=== PATIENT | female | born 1980 | race African-American/Black ===

== ENCOUNTER 2019-01-28 07:36 | Inpatient (IN) | payer MEDICAID ==
[~2019-01-28] VITALS: Ht 175.3 cm; Wt 57.6 kg
[~2019-01-28 07:36] MED LIST: FLUD25I IM; LITH600C PO; MULT-29 PO
[2019-01-28 08:19] VITALS: BP 136/81
[2019-01-28] MEDS ORDERED: ZOLPIDEM TARTRATE 10 MG TABLET PO PRN (08:45)
[2019-01-28 09:00] VITALS: BP 126/86
[2019-01-28] MEDS ORDERED: MAG HYDROX/AL HYDROX/SIMETH ES 30 ML SUSPENSION UDCUP PO PRN (11:45)
[2019-01-28] MEDS ORDERED: CloNIDine HCL 0.1 MG TABLET PO PRN (11:45)
[2019-01-28] MEDS ORDERED: LOPERAMIDE HCL 2 MG CAPSULE PO PRN (11:45)
[2019-01-28] MEDS ORDERED: BACITRACIN 28.4 GM OINTMENT TP PRN (11:45)
[2019-01-28] MEDS ORDERED: MAGNESIUM HYDROXIDE SUSPENSION 30 ML UDCUP PO PRN (11:45)
[2019-01-28] MEDS ORDERED: PETROLATUM,WHITE 28 GM JELLY TP PRN (11:45)
[2019-01-28] MEDS ORDERED: ACETAMINOPHEN 325 MG TABLET PO PRN (11:45)
[2019-01-28] MEDS ORDERED: ONDANSETRON HCL 4 MG TABLET PO PRN (11:45)
[2019-01-28] MEDS ORDERED: ALBUTEROL SULFATE HFA 90 MCG/PUFF 8 GM INHALER IH PRN (11:45)
[2019-01-28] MEDS ORDERED: IBUPROFEN 600 MG TABLET PO PRN (11:45)
[2019-01-28] MEDS ORDERED: BENZOCAINE/MENTHOL LOZENGE MM PRN (11:45)
[2019-01-28 16:15] VITALS: BP 104/68
[2019-01-29 00:25] VITALS: BP 124/75
[2019-01-29 07:42] LABS: BASOPHILS % (AUTO) 0.4 % (0.0-2.0); EOSINOPHILS % (AUTO) 0.6 % (1.0-6.0); HEMATOCRIT 40.7 % (36-46); LYMPHOCYTES # (AUTO) 1.7 K/uL (1.0-4.8); LYMPHOCYTES % (AUTO) 21.4 % (22.0-44.0); MEAN CORPUSCULAR HEMOGLOBIN 27.7 pg (26.0-34.0); MEAN CORPUSCULAR HGB CONC 31.9 G/dL (31.0-37.0); MEAN CORPUSCULAR VOLUME 87 fL (80-100); MONOCYTES # (AUTO) 0.4 K/uL (0.1-1.0); MONOCYTES % (AUTO) 5.1 % (2.0-9.0); NEUTROPHILS # (AUTO) 5.8 K/uL (1.8-7.7); NEUTROPHILS % (AUTO) 72.5 % (40.0-70.0); PLATELET COUNT (AUTO) 417 K/uL (150-450); RED BLOOD CELL COUNT(AUTO) 4.69 MIL/uL (4.00-5.20); RED CELL DISTRIBUTION WIDTH 16.3 % (11.5-14.5)
[2019-01-29 07:45] LABS: AMPHET/METH SCREEN,URINE POSITIVE (NEGATIVE); BARBITURATE SCREEN, URINE NEGATIVE (NEGATIVE); BENZODIAZEPINES SCREEN,URINE NEGATIVE (NEGATIVE); CANNABINOID SCREEN,URINE POSITIVE (NEGATIVE); COCAINE SCREEN,URINE NEGATIVE (NEGATIVE); METHADONE SCREEN, URINE NEGATIVE (NEGATIVE); OPIATE SCREEN,URINE NEGATIVE (NEGATIVE)
[2019-01-29 07:47] LABS: PHENCYCLIDINE SCREEN,URINE NEGATIVE (NEGATIVE)
[2019-01-29 07:54] LABS: APPEARANCE,URINE CLEAR (CLEAR); BILIRUBIN,URINE NEGATIVE (NEGATIVE); GLUCOSE, URINE (UA) NEGATIVE (NEGATIVE); KETONES,URINE NEGATIVE (NEGATIVE); LEUKOCYTE ESTERASE ,URINE NEGATIVE (NEGATIVE); NITRATE,URINE NEGATIVE (NEGATIVE); OCCULT BLOOD,URINE NEGATIVE (NEGATIVE); PROTEIN,URINE NEGATIVE (NEGATIVE); UROBILINOGEN,URINE 0.2 mg/dL (<=1.0)
[2019-01-29 08:05] LABS: HEMOGLOBIN A1C 5.8 % (4.5-6.2)
[2019-01-29 08:15] LABS: ALANINE AMINOTRANSFERASE 17 U/L (12-78); ALBUMIN 3.3 g/dL (3.4-5.0); ALKALINE PHOSPHATASE 58 U/L (46-116); ANION GAP 10 mmol/L (8-16); ASPARTATE AMINOTRANSFERASE 13 U/L (15-37); BILIRUBIN,TOTAL 0.2 mg/dL (0.1-1.0); CALCIUM, TOTAL 8.6 mg/dL (8.8-10.5); CARBON DIOXIDE 27 mmol/L (22-29); CHLORIDE 100 mmol/L (98-107); CHOLESTEROL 145 mg/dL (131-200); CREATININE 0.63 mg/dL (0.60-1.30); FREE T4 (FREE THYROXINE) 0.88 ng/dL (0.76-1.46); GLOMERULAR FILTR. RATE CALC > 60 mL/min (>60); GLUCOSE,RANDOM 68 mg/dL (70-110); HCG,QUANTITATIVE < 1 mIU/mL (0-6); HDL CHOLESTEROL 71 mg/dL (40-60); LDL CHOL (CALC.) 59 mg/dL (0-130); POTASSIUM 4.1 mmol/L (3.5-5.1); SODIUM SERUM 137 mmol/L (136-145); THYROID STIMULATING HORMONE 1.18 uIU/mL (0.36-3.74); TOTAL PROTEIN, SERUM 7.1 g/dL (6.4-8.2); TRIGLYCERIDES 74 mg/dL (15-150); UREA NITROGEN, BLOOD 10 mg/dL (7-18)
[2019-01-29 08:21] VITALS: BP 131/60
[2019-01-29] MEDS: MULTIVITAMINS WITH MINERALS, THERAPEUTIC TABLET PO SCH (09:00)
[2019-01-29] MEDS: OMEPRAZOLE 20 MG CAPSULE PO SCH (09:00)
[2019-01-29] MEDS: DOCUSATE SODIUM 100 MG CAPSULE PO SCH (09:00)
[2019-01-29 16:45] VITALS: BP 142/90
[2019-01-29] MEDS: FluPHENAZine HCL 10 MG TABLET PO SCH (21:00)
[2019-01-29] MEDS: LITHIUM CARBONATE 300 MG CAPSULE PO SCH (21:00)
[2019-01-30 04:53] VITALS: BP 129/77
[2019-01-30] MEDS: LITHIUM CARBONATE 300 MG CAPSULE PO SCH ×2 (09:00→18:37)
[2019-01-30] MEDS: DOCUSATE SODIUM 100 MG CAPSULE PO SCH (09:00)
[2019-01-30] MEDS: OMEPRAZOLE 20 MG CAPSULE PO SCH (09:00)
[2019-01-30] MEDS: MULTIVITAMINS WITH MINERALS, THERAPEUTIC TABLET PO SCH (09:00)
[2019-01-30] MEDS ORDERED: FluPHENAZine DECANOATE 25 MG/ML IM SCH (09:00)
[2019-01-30] MEDS: FluPHENAZine HCL 10 MG TABLET PO SCH (21:00)
[2019-01-31 02:58] VITALS: BP 127/64
[2019-01-31] MEDS: LITHIUM CARBONATE 300 MG CAPSULE PO SCH ×2 (08:55→16:41)
[2019-01-31] MEDS: MULTIVITAMINS WITH MINERALS, THERAPEUTIC TABLET PO SCH (08:55)
[2019-01-31] MEDS: OMEPRAZOLE 20 MG CAPSULE PO SCH (08:55)
[2019-01-31] MEDS: LORazepam 2 MG TABLET PO PRN (08:55)
[2019-01-31] MEDS: DOCUSATE SODIUM 100 MG CAPSULE PO SCH (08:55)
[2019-01-31 16:25] VITALS: BP 111/70
[2019-01-31] MEDS: FluPHENAZine HCL 10 MG TABLET PO SCH (21:00)
[2019-02-01] VITALS: BP 118/71
[2019-02-01 08:20] VITALS: BP 120/68
[2019-02-01] MEDS: OMEPRAZOLE 20 MG CAPSULE PO SCH (09:00)
[2019-02-01] MEDS: MULTIVITAMINS WITH MINERALS, THERAPEUTIC TABLET PO SCH (09:00)
[2019-02-01] MEDS: LITHIUM CARBONATE 300 MG CAPSULE PO SCH ×2 (09:00→16:11)
[2019-02-01] MEDS: DOCUSATE SODIUM 100 MG CAPSULE PO SCH (09:01)
[2019-02-01] MEDS ORDERED: ARIPiprazole ER SUSPENSION 400 MG PRE-FILLED DUAL CHAMBER SYRINGE IM SCH (10:00)
[2019-02-01] MEDS: ARIPiprazole 15 MG TABLET PO SCH (10:06)
[2019-02-01 16:20] VITALS: BP 142/63
[2019-02-02 01:20] VITALS: BP 117/74
[2019-02-02 08:15] VITALS: BP 116/70
[2019-02-02] MEDS: ARIPiprazole 15 MG TABLET PO SCH (08:50)
[2019-02-02] MEDS: DOCUSATE SODIUM 100 MG CAPSULE PO SCH (08:50)
[2019-02-02] MEDS: LITHIUM CARBONATE 300 MG CAPSULE PO SCH ×2 (08:51→16:34)
[2019-02-02] MEDS: OMEPRAZOLE 20 MG CAPSULE PO SCH (08:51)
[2019-02-02] MEDS: MULTIVITAMINS WITH MINERALS, THERAPEUTIC TABLET PO SCH (08:52)
[2019-02-02 16:32] VITALS: BP 137/87
[2019-02-02] MEDS: LORazepam 2 MG TABLET PO PRN (16:34)
[2019-02-03] MEDS: HALOPERIDOL 5 MG TABLET PO PRN ×2 (04:18→16:34)
[2019-02-03 04:20] VITALS: BP 121/73
[2019-02-03 08:11] VITALS: BP 100/66
[2019-02-03] MEDS: DOCUSATE SODIUM 100 MG CAPSULE PO SCH (08:32)
[2019-02-03] MEDS: LITHIUM CARBONATE 300 MG CAPSULE PO SCH ×3 (08:32→16:34)
[2019-02-03] MEDS: OMEPRAZOLE 20 MG CAPSULE PO SCH ×2 (08:32→08:45)
[2019-02-03] MEDS: ARIPiprazole 15 MG TABLET PO SCH (08:32)
[2019-02-03] MEDS: MULTIVITAMINS WITH MINERALS, THERAPEUTIC TABLET PO SCH (08:32)
[2019-02-03] MEDS: LORazepam 2 MG TABLET PO PRN ×2 (08:33→16:34)
[2019-02-03 16:09] VITALS: BP 132/65
[2019-02-04 05:17] VITALS: BP 119/66
[2019-02-04 08:50] VITALS: BP 123/68
[2019-02-04] MEDS: ARIPiprazole 15 MG TABLET PO SCH (08:53)
[2019-02-04] MEDS: OMEPRAZOLE 20 MG CAPSULE PO SCH (08:53)
[2019-02-04] MEDS: LITHIUM CARBONATE 300 MG CAPSULE PO SCH ×2 (08:53→16:01)
[2019-02-04] MEDS: DOCUSATE SODIUM 100 MG CAPSULE PO SCH (08:53)
[2019-02-04] MEDS: MULTIVITAMINS WITH MINERALS, THERAPEUTIC TABLET PO SCH (08:53)
[2019-02-04 16:29] VITALS: BP 128/73
[2019-02-04] MEDS: LORazepam 2 MG TABLET PO PRN (21:35)
[2019-02-05 02:52] VITALS: BP 128/70
[2019-02-05] MEDS: DIVALPROEX SODIUM 500 MG DR TABLET PO SCH ×2 (08:03→16:38)
[2019-02-05] MEDS: ARIPiprazole 15 MG TABLET PO SCH (08:03)
[2019-02-05] MEDS: MULTIVITAMINS WITH MINERALS, THERAPEUTIC TABLET PO SCH (08:03)
[2019-02-05] MEDS: OMEPRAZOLE 20 MG CAPSULE PO SCH (08:03)
[2019-02-05] MEDS: DOCUSATE SODIUM 100 MG CAPSULE PO SCH (08:03)
[2019-02-05 08:28] VITALS: BP 119/69
[2019-02-05] MEDS: LORazepam 2 MG TABLET PO PRN ×2 (10:06→16:00)
[2019-02-05 16:00] VITALS: BP 124/73
[2019-02-06 00:28] VITALS: BP 114/65
[2019-02-06] MEDS: LORazepam 2 MG TABLET PO PRN ×2 (03:49→16:35)
[2019-02-06] MEDS: DOCUSATE SODIUM 100 MG CAPSULE PO SCH (08:22)
[2019-02-06] MEDS: OMEPRAZOLE 20 MG CAPSULE PO SCH (08:22)
[2019-02-06] MEDS: DIVALPROEX SODIUM 500 MG DR TABLET PO SCH ×2 (08:22→17:00)
[2019-02-06] MEDS: ARIPiprazole 15 MG TABLET PO SCH (08:22)
[2019-02-06] MEDS: MULTIVITAMINS WITH MINERALS, THERAPEUTIC TABLET PO SCH (08:22)
[2019-02-06 08:27] VITALS: BP 135/70
[2019-02-06 16:14] VITALS: BP 124/74
[2019-02-07 00:35] VITALS: BP 122/69
[2019-02-07 08:20] VITALS: BP 124/76
[2019-02-07] MEDS: ARIPiprazole 15 MG TABLET PO SCH (08:48)
[2019-02-07] MEDS: MULTIVITAMINS WITH MINERALS, THERAPEUTIC TABLET PO SCH (08:48)
[2019-02-07] MEDS: DOCUSATE SODIUM 100 MG CAPSULE PO SCH (08:48)
[2019-02-07] MEDS: DIVALPROEX SODIUM 500 MG DR TABLET PO SCH ×2 (08:52→17:00)
[2019-02-07] MEDS: OMEPRAZOLE 20 MG CAPSULE PO SCH (08:52)
[2019-02-07 16:05] VITALS: BP 122/79
[2019-02-08 04:09] VITALS: BP 119/73
[2019-02-08 08:08] VITALS: BP 128/74
[2019-02-08] MEDS: ARIPiprazole 15 MG TABLET PO SCH (08:44)
[2019-02-08] MEDS: DOCUSATE SODIUM 100 MG CAPSULE PO SCH (08:44)
[2019-02-08] MEDS: DIVALPROEX SODIUM 500 MG DR TABLET PO SCH (09:00)
[2019-02-08] MEDS: MULTIVITAMINS WITH MINERALS, THERAPEUTIC TABLET PO SCH (09:00)
[2019-02-08] MEDS: OMEPRAZOLE 20 MG CAPSULE PO SCH (09:00)
[2019-02-08] MEDS ORDERED: DIVA-78 PO (10:51)
[2019-02-08] MEDS ORDERED: ARIP15TA2 PO (10:51)
[2019-02-08] MEDS ORDERED: ARIP400S3 IM (10:51)
== END 2019-02-08 12:15 | disposition home or self-care (01) | DRG 750 ==
LOC: B3A 08:50
PROVIDERS: ADMIT Psychiatry & Neurology Psychiatry; ATTEND Psychiatry & Neurology Psychiatry
DX: F20.0 Paranoid schizophrenia (principal); R45.851 Suicidal ideations; G47.00 Insomnia, unspecified; K59.00 Constipation, unspecified; F19.10 Other psychoactive substance abuse, uncomplicated; Z56.0 Unemployment, unspecified; Z71.51 Drug abuse counseling and surveillance of drug abuser
CPT/HCPCS: 80307; 83036; 84439; 84443; J0401; J2680

== ENCOUNTER 2019-04-29 22:28 | Inpatient (IN) | payer MEDICAID ==
[~2019-04-29] VITALS: Ht 175.3 cm; Wt 65.3 kg
[~2019-04-29 22:28] MED LIST changes: +ARIP15TA2 PO; +ARIP400S3 IM; +DIVA-78 PO; -FLUD25I IM; -LITH600C PO; -MULT-29 PO
[2019-04-29] MEDS ORDERED: ZOLPIDEM TARTRATE 10 MG TABLET PO PRN (22:45)
[2019-04-29 23:08] VITALS: BP 114/72
[2019-04-30 00:27] VITALS: BP 131/79
[2019-04-30] MEDS ORDERED: ONDANSETRON HCL 4 MG TABLET PO PRN (08:30)
[2019-04-30] MEDS ORDERED: PETROLATUM,WHITE 28 GM JELLY TP PRN (08:30)
[2019-04-30] MEDS ORDERED: BENZOCAINE/MENTHOL LOZENGE MM PRN (08:30)
[2019-04-30] MEDS ORDERED: CloNIDine HCL 0.1 MG TABLET PO PRN (08:30)
[2019-04-30] MEDS ORDERED: MAG HYDROX/AL HYDROX/SIMETH ES 30 ML SUSPENSION UDCUP PO PRN (08:30)
[2019-04-30] MEDS ORDERED: MAGNESIUM HYDROXIDE SUSPENSION 30 ML UDCUP PO PRN (08:30)
[2019-04-30] MEDS ORDERED: ALBUTEROL SULFATE HFA 90 MCG/PUFF 8 GM INHALER IH PRN (08:30)
[2019-04-30] MEDS ORDERED: OMEPRAZOLE 20 MG CAPSULE PO PRN (08:30)
[2019-04-30] MEDS ORDERED: DOCUSATE SODIUM 100 MG CAPSULE PO PRN (08:30)
[2019-04-30] MEDS ORDERED: LOPERAMIDE HCL 2 MG CAPSULE PO PRN (08:30)
[2019-04-30] MEDS ORDERED: BACITRACIN 28.4 GM OINTMENT TP PRN (08:30)
[2019-04-30] MEDS ORDERED: ACETAMINOPHEN 325 MG TABLET PO PRN (08:30)
[2019-04-30] MEDS ORDERED: IBUPROFEN 600 MG TABLET PO PRN (08:30)
[2019-04-30] MEDS: ARIPiprazole 15 MG TABLET PO SCH (10:57)
[2019-04-30 16:02] VITALS: BP 118/76
[2019-04-30] MEDS: LORazepam 2 MG TABLET PO PRN (17:50)
[2019-04-30] MEDS: HALOPERIDOL 5 MG TABLET PO PRN (17:50)
[2019-04-30] MEDS: DIVALPROEX SODIUM 500 MG DR TABLET PO SCH (18:28)
[2019-05-01 06:04] VITALS: BP 118/68
[2019-05-01] MEDS: DIVALPROEX SODIUM 500 MG DR TABLET PO SCH ×2 (08:10→16:21)
[2019-05-01] MEDS: ARIPiprazole 15 MG TABLET PO SCH (08:10)
[2019-05-01 08:38] LABS: BASOPHILS % (AUTO) 0.4 % (0.0-2.0); HEMATOCRIT 42.3 % (36-46); HEMOGLOBIN 13.5 g/dL (12.0-16.0); LYMPHOCYTES # (AUTO) 1.5 K/uL (1.0-4.8); LYMPHOCYTES % (AUTO) 19.6 % (22.0-44.0); MEAN CORPUSCULAR HEMOGLOBIN 27.5 pg (26.0-34.0); MEAN CORPUSCULAR HGB CONC 31.8 G/dL (31.0-37.0); MEAN CORPUSCULAR VOLUME 86 fL (80-100); MONOCYTES # (AUTO) 0.3 K/uL (0.1-1.0); MONOCYTES % (AUTO) 3.2 % (2.0-9.0); NEUTROPHILS # (AUTO) 5.9 K/uL (1.8-7.7); NEUTROPHILS % (AUTO) 75.8 % (40.0-70.0); PLATELET COUNT (AUTO) 325 K/uL (150-450); RED CELL DISTRIBUTION WIDTH 16.2 % (11.5-14.5)
[2019-05-01 09:00] LABS: HEMOGLOBIN A1C 5.7 % (4.5-6.2)
[2019-05-01 09:09] LABS: ALANINE AMINOTRANSFERASE 15 U/L (12-78); ALKALINE PHOSPHATASE 68 U/L (46-116); ANION GAP 12 mmol/L (8-16); ASPARTATE AMINOTRANSFERASE 16 U/L (15-37); BILIRUBIN,TOTAL 0.2 mg/dL (0.1-1.0); CALCIUM, TOTAL 8.9 mg/dL (8.8-10.5); CARBON DIOXIDE 23 mmol/L (22-29); CHLORIDE 105 mmol/L (98-107); CHOLESTEROL 120 mg/dL (131-200); CREATININE 0.73 mg/dL (0.60-1.30); FREE T4 (FREE THYROXINE) 0.92 ng/dL (0.76-1.46); GLOMERULAR FILTR. RATE CALC > 60 mL/min (>60); GLUCOSE,RANDOM 96 mg/dL (70-110); HCG,QUANTITATIVE < 1 mIU/mL (0-6); HDL CHOLESTEROL 61 mg/dL (40-60); LDL CHOL (CALC.) 48 mg/dL (0-130); POTASSIUM 4.3 mmol/L (3.5-5.1); SODIUM SERUM 140 mmol/L (136-145); THYROID STIMULATING HORMONE 0.57 uIU/mL (0.36-3.74); TRIGLYCERIDES 56 mg/dL (15-150); UREA NITROGEN, BLOOD 8 mg/dL (7-18)
[2019-05-01 09:15] LABS: ALBUMIN 3.3 g/dL (3.4-5.0)
[2019-05-01] MEDS: LORazepam 2 MG TABLET PO PRN (19:22)
[2019-05-02 00:37] VITALS: BP 102/65
[2019-05-02] MEDS: DIVALPROEX SODIUM 500 MG DR TABLET PO SCH ×2 (08:03→16:13)
[2019-05-02] MEDS: HALOPERIDOL 5 MG TABLET PO PRN (08:03)
[2019-05-02] MEDS: ARIPiprazole 15 MG TABLET PO SCH (08:03)
[2019-05-02] MEDS: LORazepam 2 MG TABLET PO PRN (08:03)
[2019-05-02 08:11] VITALS: BP 123/72
[2019-05-02 16:05] VITALS: BP 132/64
[2019-05-03 07:12] VITALS: BP 127/68
[2019-05-03 08:21] VITALS: BP 127/95
[2019-05-03] MEDS: DIVALPROEX SODIUM 500 MG DR TABLET PO SCH ×2 (09:41→17:00)
[2019-05-03] MEDS: ARIPiprazole 15 MG TABLET PO SCH (09:41)
[2019-05-03 14:26] VITALS: BP 123/71
[2019-05-03 16:05] VITALS: BP 132/72
[2019-05-04 06:07] VITALS: BP 128/72
[2019-05-04] MEDS: ARIPiprazole 15 MG TABLET PO SCH (08:16)
[2019-05-04] MEDS: DIVALPROEX SODIUM 500 MG DR TABLET PO SCH ×3 (08:21→16:40)
[2019-05-04] MEDS ORDERED: ARIPiprazole LAUROXIL,SUBMICR. ER SUSPENSION 675 MG/2.4 ML SYRINGE IM ONE (11:00)
[2019-05-04] MEDS ORDERED: ARIPiprazole LAUROXIL ER SUSPENSION 882 MG/3.2 ML SYRINGE IM SCH (11:00)
[2019-05-04] MEDS ORDERED: TUBERCULIN, PURIFIED PROTEIN DERIVATIVE 5 TU/0.1 ML SYRINGE ID ONE ×2 (13:45→14:00)
[2019-05-04 16:09] VITALS: BP 120/82
[2019-05-04] MEDS: LORazepam 2 MG TABLET PO PRN (16:40)
[2019-05-05 02:13] VITALS: BP 118/78
[2019-05-05 08:18] VITALS: BP 146/72
[2019-05-05] MEDS: DIVALPROEX SODIUM 500 MG DR TABLET PO SCH ×2 (08:38→17:00)
[2019-05-05 16:01] VITALS: BP 114/65
[2019-05-06 04:45] VITALS: BP 128/65
[2019-05-06 08:07] VITALS: BP 114/68
[2019-05-06] MEDS: DIVALPROEX SODIUM 500 MG DR TABLET PO SCH ×2 (08:49→16:13)
[2019-05-06 16:08] VITALS: BP 109/73
[2019-05-07 06:29] VITALS: BP 115/67
[2019-05-07 08:07] VITALS: BP 126/64
[2019-05-07] MEDS: DIVALPROEX SODIUM 500 MG DR TABLET PO SCH ×2 (08:12→16:20)
[2019-05-07 16:01] VITALS: BP 119/67
[2019-05-07] MEDS: LORazepam 2 MG TABLET PO PRN (16:20)
[2019-05-08 05:10] VITALS: BP 117/68
[2019-05-08 08:09] VITALS: BP 125/80
[2019-05-08] MEDS: DIVALPROEX SODIUM 500 MG DR TABLET PO SCH ×2 (09:08→16:35)
[2019-05-08 16:03] VITALS: BP 112/64
[2019-05-08] MEDS: LORazepam 2 MG TABLET PO PRN (21:47)
[2019-05-09 06:42] VITALS: BP 115/62
[2019-05-09] MEDS: DIVALPROEX SODIUM 500 MG DR TABLET PO SCH ×2 (08:10→17:00)
[2019-05-09 08:17] VITALS: BP 119/74
[2019-05-09 16:09] VITALS: BP 120/69
[2019-05-10 02:21] VITALS: BP 111/79
[2019-05-10 08:27] VITALS: BP 127/78
[2019-05-10] MEDS: DIVALPROEX SODIUM 500 MG DR TABLET PO SCH ×2 (08:28→16:05)
[2019-05-10 16:05] VITALS: BP 122/65
[2019-05-11 07:10] VITALS: BP 125/67
[2019-05-11 08:05] VITALS: BP 100/67
[2019-05-11] MEDS: DIVALPROEX SODIUM 500 MG DR TABLET PO SCH ×2 (08:30→16:08)
[2019-05-11 16:21] VITALS: BP 121/66
[2019-05-12 07:16] VITALS: BP 126/67
[2019-05-12 08:06] VITALS: BP 118/70
[2019-05-12] MEDS: DIVALPROEX SODIUM 500 MG DR TABLET PO SCH (08:09)
== END 2019-05-12 10:44 | disposition home or self-care (01) | DRG 750 ==
LOC: B3A 23:39
PROVIDERS: ADMIT Psychiatry & Neurology Child & Adolescent Psychiatry; ATTEND Psychiatry & Neurology Child & Adolescent Psychiatry
DX: F20.0 Paranoid schizophrenia (principal); R45.851 Suicidal ideations; Z59.0 Homelessness; F41.9 Anxiety disorder, unspecified; K59.00 Constipation, unspecified; G47.00 Insomnia, unspecified; F12.90 Cannabis use, unspecified, uncomplicated; Z56.0 Unemployment, unspecified; Z91.19 Patient's noncompliance with other medical treatment and regimen
CPT/HCPCS: 83036; 84439; 84443; Q0162

== ENCOUNTER 2019-08-04 16:38 | Emergency (ER) | payer MEDICAID, OTHER ==
[~2019-08-04] VITALS: Ht 172.7 cm; Wt 63.6 kg
[~2019-08-04 16:38] MED LIST changes: -ARIP15TA2 PO
[2019-08-04 17:52] LABS: BASOPHILS % (AUTO) 0.7 % (0.0-2.0); EOSINOPHILS % (AUTO) 1.2 % (1.0-6.0); HEMATOCRIT 40.1 % (36-46); LYMPHOCYTES # (AUTO) 1.9 K/uL (1.0-4.8); LYMPHOCYTES % (AUTO) 22.5 % (22.0-44.0); MEAN CORPUSCULAR HEMOGLOBIN 27.9 pg (26.0-34.0); MEAN CORPUSCULAR HGB CONC 32.4 G/dL (31.0-37.0); MEAN CORPUSCULAR VOLUME 86 fL (80-100); MONOCYTES # (AUTO) 0.8 K/uL (0.1-1.0); MONOCYTES % (AUTO) 8.8 % (2.0-9.0); NEUTROPHILS # (AUTO) 5.8 K/uL (1.8-7.7); NEUTROPHILS % (AUTO) 66.8 % (40.0-70.0); PLATELET COUNT (AUTO) 363 K/uL (150-450); RED BLOOD CELL COUNT(AUTO) 4.65 MIL/uL (4.00-5.20); RED CELL DISTRIBUTION WIDTH 16.2 % (11.5-14.5)
[2019-08-04 18:07] LABS: ANION GAP 6 mmol/L (8-16); CALCIUM, TOTAL 8.7 mg/dL (8.8-10.5); CARBON DIOXIDE 31 mmol/L (22-29); CHLORIDE 98 mmol/L (98-107); CREATININE 0.66 mg/dL (0.60-1.30); GLOMERULAR FILTR. RATE CALC > 60 mL/min (>60); GLUCOSE,RANDOM 94 mg/dL (70-110); POTASSIUM 3.7 mmol/L (3.5-5.1); SODIUM SERUM 135 mmol/L (136-145); UREA NITROGEN, BLOOD 6 mg/dL (7-18)
[2019-08-04 18:08] LABS: ALANINE AMINOTRANSFERASE 25 U/L (12-78); ALBUMIN 3.6 g/dL (3.4-5.0); ALKALINE PHOSPHATASE 66 U/L (46-116); ASPARTATE AMINOTRANSFERASE 17 U/L (15-37); BILIRUBIN,TOTAL 0.1 mg/dL (0.1-1.0); TOTAL PROTEIN, SERUM 7.7 g/dL (6.4-8.2)
[2019-08-04] MEDS ORDERED: ARIPiprazole ER SUSPENSION 400 MG PRE-FILLED DUAL CHAMBER SYRINGE IM ONE (22:45)
[2019-08-04] MEDS ORDERED: DIVALPROEX SODIUM 250 MG DR TABLET PO ONE (22:45)
[2019-08-04 23:30] VITALS: BP 118/76
== END 2019-08-04 23:45 | disposition home or self-care (01) ==
LOC: EMS 16:40
DX: F20.9 Schizophrenia, unspecified (principal); F22 Delusional disorders; F15.10 Other stimulant abuse, uncomplicated; F17.210 Nicotine dependence, cigarettes, uncomplicated; F12.90 Cannabis use, unspecified, uncomplicated
CPT/HCPCS: 36415; 80053; 85025; 96372; 99284; G0480; J0401

== ENCOUNTER 2020-01-22 15:40 | Inpatient (IN) | payer MEDICAID ==
[~2020-01-22] VITALS: Ht 175.3 cm; Wt 64.1 kg
[~2020-01-22 15:40] MED LIST changes: +DIVA-112 PO; -DIVA-78 PO
[2020-01-22 18:06] VITALS: BP 108/68
[2020-01-22] MEDS ORDERED: LOPERAMIDE HCL 2 MG CAPSULE PO PRN (20:15)
[2020-01-22] MEDS ORDERED: PETROLATUM,WHITE 28 GM JELLY TP PRN (20:15)
[2020-01-22] MEDS ORDERED: GuaiFENesin/D-METHORPHAN [SUGAR-FREE] 200-20MG/10 ML SYRUP UDCUP PO PRN (20:15)
[2020-01-22] MEDS ORDERED: CloNIDine HCL 0.1 MG TABLET PO PRN (20:15)
[2020-01-22] MEDS ORDERED: DOCUSATE SODIUM 100 MG CAPSULE PO PRN (20:15)
[2020-01-22] MEDS ORDERED: IBUPROFEN 400 MG TABLET PO PRN (20:15)
[2020-01-22] MEDS ORDERED: ACETAMINOPHEN 325 MG TABLET PO PRN (20:15)
[2020-01-22] MEDS ORDERED: MAGNESIUM HYDROXIDE SUSPENSION 30 ML UDCUP PO PRN (20:15)
[2020-01-22] MEDS ORDERED: ALBUTEROL SULFATE HFA 90 MCG/PUFF 8 GM INHALER IH PRN (20:15)
[2020-01-22] MEDS ORDERED: NICOTINE 14 MG/24 HOUR PATCH TD PRN (20:15)
[2020-01-22] MEDS ORDERED: MAG HYDROX/AL HYDROX/SIMETH ES 30 ML SUSPENSION UDCUP PO PRN (20:15)
[2020-01-22] MEDS ORDERED: ONDANSETRON HCL 4 MG TABLET PO PRN (20:15)
[2020-01-23 05:10] VITALS: BP 111/63
[2020-01-23 08:25] LABS: BASOPHILS % (AUTO) 0.6 % (0.0-2.0); EOSINOPHILS % (AUTO) 0.6 % (1.0-6.0); HEMATOCRIT 39.2 % (36-46); HEMOGLOBIN 12.4 g/dL (12.0-16.0); LYMPHOCYTES # (AUTO) 1.5 K/uL (1.0-4.8); LYMPHOCYTES % (AUTO) 23.8 % (22.0-44.0); MEAN CORPUSCULAR HEMOGLOBIN 26.3 pg (26.0-34.0); MEAN CORPUSCULAR HGB CONC 31.5 G/dL (31.0-37.0); MEAN CORPUSCULAR VOLUME 83 fL (80-100); MONOCYTES # (AUTO) 0.4 K/uL (0.1-1.0); NEUTROPHILS # (AUTO) 4.5 K/uL (1.8-7.7); PLATELET COUNT (AUTO) 429 K/uL (150-450)
[2020-01-23 08:30] VITALS: BP 116/64
[2020-01-23 08:39] LABS: HEMOGLOBIN A1C 5.7 % (3.8-5.6)
[2020-01-23 09:07] LABS: ALANINE AMINOTRANSFERASE 15 U/L (12-78); ALBUMIN 3.7 g/dL (3.4-5.0); ALKALINE PHOSPHATASE 62 U/L (46-116); ANION GAP 8 mmol/L (8-16); ASPARTATE AMINOTRANSFERASE 11 U/L (15-37); BILIRUBIN,TOTAL 0.2 mg/dL (0.1-1.0); CARBON DIOXIDE 27 mmol/L (22-29); CHLORIDE 103 mmol/L (98-107); CHOL/HDL RATIO 1.9 (3.9-5.7); CHOLESTEROL 145 mg/dL (131-200); CREATININE 0.76 mg/dL (0.60-1.30); FREE T4 (FREE THYROXINE) 0.97 ng/dL (0.76-1.46); GLOMERULAR FILTR. RATE CALC > 60 mL/min (>60); GLUCOSE,RANDOM 70 mg/dL (70-110); HDL CHOLESTEROL 75 mg/dL (40-60); LDL CHOL (CALC.) 58 mg/dL (0-130); POTASSIUM 4.2 mmol/L (3.5-5.1); SODIUM SERUM 138 mmol/L (136-145); THYROID STIMULATING HORMONE 0.32 uIU/mL (0.36-3.74); TOTAL PROTEIN, SERUM 7.5 g/dL (6.4-8.2); TRIGLYCERIDES 59 mg/dL (15-150); UREA NITROGEN, BLOOD 14 mg/dL (7-18)
[2020-01-23 09:08] LABS: VALPROIC ACID < 3 mcg/mL (50-100)
[2020-01-23 16:19] VITALS: BP 115/70
[2020-01-23] MEDS: QUEtiapine FUMARATE 100 MG TABLET PO SCH (20:53)
[2020-01-24 08:20] VITALS: BP 121/83
[2020-01-24 16:21] VITALS: BP 105/60
[2020-01-24] MEDS: LORazepam 2 MG TABLET PO PRN (16:47)
[2020-01-24] MEDS: HALOPERIDOL 5 MG TABLET PO PRN (16:47)
[2020-01-24] MEDS: ZOLPIDEM TARTRATE 10 MG TABLET PO PRN (20:36)
[2020-01-24] MEDS: QUEtiapine FUMARATE 100 MG TABLET PO SCH (20:36)
[2020-01-25 00:45] VITALS: BP 103/70
[2020-01-25 16:22] VITALS: BP 114/59
[2020-01-25] MEDS: ZOLPIDEM TARTRATE 10 MG TABLET PO PRN (21:33)
[2020-01-25] MEDS: QUEtiapine FUMARATE 100 MG TABLET PO SCH (21:33)
[2020-01-26 01:46] VITALS: BP 102/83
[2020-01-26 08:20] VITALS: BP 110/71
[2020-01-26 17:24] VITALS: BP 108/72
[2020-01-26] MEDS: QUEtiapine FUMARATE 100 MG TABLET PO SCH (21:06)
[2020-01-27 02:29] VITALS: BP 100/78
[2020-01-27] MEDS: LORazepam 2 MG TABLET PO PRN ×2 (04:32→16:46)
[2020-01-27] MEDS: HALOPERIDOL 5 MG TABLET PO PRN (04:32)
[2020-01-27 08:29] VITALS: BP 111/66
[2020-01-27 17:04] VITALS: BP 103/58
[2020-01-27] MEDS: ZOLPIDEM TARTRATE 10 MG TABLET PO PRN (20:38)
[2020-01-27] MEDS: QUEtiapine FUMARATE 100 MG TABLET PO SCH (20:38)
[2020-01-28 04:41] VITALS: BP 100/66
[2020-01-28] MEDS: HALOPERIDOL 5 MG TABLET PO PRN ×2 (05:31→16:37)
[2020-01-28] MEDS: LORazepam 2 MG TABLET PO PRN ×2 (05:31→16:37)
[2020-01-28 08:23] VITALS: BP 114/75
[2020-01-28] MEDS ORDERED: TUBERCULIN, PURIFIED PROTEIN DERIVATIVE 5 TU/0.1 ML SYRINGE ID ONE (14:00)
[2020-01-28 16:06] VITALS: BP 118/72
[2020-01-28] MEDS: QUEtiapine FUMARATE 100 MG TABLET PO SCH (20:19)
[2020-01-28] MEDS: ZOLPIDEM TARTRATE 10 MG TABLET PO PRN (20:19)
[2020-01-29] MEDS: HALOPERIDOL 5 MG TABLET PO PRN ×2 (02:48→10:01)
[2020-01-29 03:43] VITALS: BP 124/77
[2020-01-29 08:27] VITALS: BP 117/64
[2020-01-29] MEDS: LORazepam 2 MG TABLET PO PRN (10:00)
[2020-01-29 16:00] VITALS: BP 105/60
[2020-01-29] MEDS: QUEtiapine FUMARATE 100 MG TABLET PO SCH (21:19)
[2020-01-30 08:19] VITALS: BP 112/76
[2020-01-30] MEDS: LORazepam 2 MG TABLET PO PRN (09:10)
[2020-01-30 16:21] VITALS: BP 130/78
[2020-01-30] MEDS: ZOLPIDEM TARTRATE 10 MG TABLET PO PRN (21:46)
[2020-01-30] MEDS: QUEtiapine FUMARATE 100 MG TABLET PO SCH (21:46)
[2020-01-31 08:30] VITALS: BP 111/72
[2020-01-31] MEDS: LORazepam 2 MG TABLET PO PRN (10:34)
[2020-01-31 16:32] VITALS: BP 112/66
[2020-01-31] MEDS: HALOPERIDOL 5 MG TABLET PO PRN (17:35)
[2020-01-31] MEDS: QUEtiapine FUMARATE 100 MG TABLET PO SCH (20:25)
[2020-02-01 02:54] VITALS: BP 101/62
[2020-02-01 08:43] VITALS: BP 106/73
[2020-02-01] MEDS: LORazepam 2 MG TABLET PO PRN (09:02)
[2020-02-01 16:18] VITALS: BP 100/60
[2020-02-01] MEDS: HALOPERIDOL 5 MG TABLET PO PRN (16:44)
[2020-02-01] MEDS: QUEtiapine FUMARATE 100 MG TABLET PO SCH (20:29)
[2020-02-01] MEDS: ZOLPIDEM TARTRATE 10 MG TABLET PO PRN (20:29)
[2020-02-02 02:08] VITALS: BP 101/66
[2020-02-02 08:16] VITALS: BP 116/71
[2020-02-02 16:26] VITALS: BP 116/68
[2020-02-02] MEDS: QUEtiapine FUMARATE 100 MG TABLET PO SCH (20:39)
[2020-02-03 06:09] VITALS: BP 104/61
[2020-02-03] MEDS: LORazepam 2 MG TABLET PO PRN (08:21)
[2020-02-03 08:31] VITALS: BP 127/76
[2020-02-03] MEDS: HALOPERIDOL 5 MG TABLET PO PRN (16:17)
[2020-02-03 16:21] VITALS: BP 107/69
[2020-02-03] MEDS: ZOLPIDEM TARTRATE 10 MG TABLET PO PRN (20:29)
[2020-02-03] MEDS: QUEtiapine FUMARATE 100 MG TABLET PO SCH (20:29)
[2020-02-04 06:02] VITALS: BP 117/57
[2020-02-04 08:29] VITALS: BP 118/71
[2020-02-04] MEDS: HALOPERIDOL 5 MG TABLET PO PRN ×2 (08:56→16:27)
[2020-02-04] MEDS: LORazepam 2 MG TABLET PO PRN (08:56)
[2020-02-04 16:18] VITALS: BP 102/77
[2020-02-04] MEDS: QUEtiapine FUMARATE 100 MG TABLET PO SCH (21:03)
[2020-02-05 05:43] VITALS: BP 102/58
[2020-02-05 08:29] VITALS: BP 116/68
[2020-02-05] MEDS: LORazepam 2 MG TABLET PO PRN (08:55)
[2020-02-05 17:12] VITALS: BP 111/95
[2020-02-05] MEDS: QUEtiapine FUMARATE 100 MG TABLET PO SCH (20:46)
[2020-02-06 05:34] VITALS: BP 100/62
[2020-02-06] MEDS: LORazepam 2 MG TABLET PO PRN ×2 (08:19→14:24)
[2020-02-06] MEDS: HALOPERIDOL 5 MG TABLET PO PRN ×2 (08:19→14:24)
[2020-02-06 08:46] VITALS: BP 123/74
[2020-02-06 17:14] VITALS: BP 112/58
[2020-02-06] MEDS: QUEtiapine FUMARATE 100 MG TABLET PO SCH (20:29)
[2020-02-07 02:20] VITALS: BP 103/62
[2020-02-07 09:55] VITALS: BP 113/60
[2020-02-07] MEDS: HALOPERIDOL 5 MG TABLET PO PRN (10:35)
[2020-02-07] MEDS: LORazepam 2 MG TABLET PO PRN (10:35)
[2020-02-07 16:00] VITALS: BP 100/65
[2020-02-07] MEDS: QUEtiapine FUMARATE 100 MG TABLET PO SCH (20:53)
[2020-02-08 02:26] VITALS: BP 106/55
[2020-02-08 08:10] VITALS: BP 117/66
[2020-02-08] MEDS: LORazepam 2 MG TABLET PO PRN (08:39)
[2020-02-08 16:47] VITALS: BP 116/64
[2020-02-08] MEDS: QUEtiapine FUMARATE 100 MG TABLET PO SCH (20:31)
[2020-02-09 02:53] VITALS: BP 116/73
[2020-02-09 08:21] VITALS: BP 126/70
[2020-02-09] MEDS: LORazepam 2 MG TABLET PO PRN (08:43)
[2020-02-09 16:36] VITALS: BP 116/76
[2020-02-09] MEDS: QUEtiapine FUMARATE 100 MG TABLET PO SCH (20:25)
[2020-02-10 04:09] VITALS: BP 118/78
[2020-02-10 08:26] VITALS: BP 114/76
[2020-02-10] MEDS: LORazepam 2 MG TABLET PO PRN (08:27)
[2020-02-10 16:19] VITALS: BP 114/68
[2020-02-10] MEDS: QUEtiapine FUMARATE 100 MG TABLET PO SCH (21:00)
[2020-02-10] MEDS: HALOPERIDOL LACTATE 5 MG/ML VIAL IM PRN (21:49)
[2020-02-11 03:50] VITALS: BP 102/52
[2020-02-11 06:06] VITALS: BP 102/52
[2020-02-11] MEDS: LORazepam 2 MG TABLET PO PRN (09:15)
[2020-02-11 09:33] VITALS: BP 103/66
[2020-02-11 18:14] VITALS: BP 95/57
[2020-02-11] MEDS: QUEtiapine FUMARATE 100 MG TABLET PO SCH (20:36)
[2020-02-12 01:34] VITALS: BP 105/63
[2020-02-12 08:37] VITALS: BP 107/73
[2020-02-12] MEDS: LORazepam 2 MG TABLET PO PRN (10:02)
[2020-02-12] MEDS: HALOPERIDOL 5 MG TABLET PO PRN (10:31)
[2020-02-12 16:00] VITALS: BP 95/64
[2020-02-12] MEDS: QUEtiapine FUMARATE 200 MG TABLET PO SCH (20:56)
[2020-02-13 01:46] VITALS: BP 115/64
[2020-02-13 08:28] VITALS: BP 119/68
[2020-02-13] MEDS: LORazepam 2 MG TABLET PO PRN (08:28)
[2020-02-13 16:55] VITALS: BP 102/59
[2020-02-13] MEDS: QUEtiapine FUMARATE 200 MG TABLET PO SCH (20:45)
[2020-02-14 01:08] VITALS: BP 108/70
[2020-02-14 08:22] VITALS: BP 106/77
[2020-02-14] MEDS: LORazepam 2 MG TABLET PO PRN (08:32)
[2020-02-14 16:39] VITALS: BP 106/62
[2020-02-14] MEDS: QUEtiapine FUMARATE 200 MG TABLET PO SCH (20:34)
[2020-02-15 01:54] VITALS: BP 112/58
[2020-02-15 08:24] VITALS: BP 119/68
[2020-02-15] MEDS: LORazepam 2 MG TABLET PO PRN (08:35)
[2020-02-15 16:38] VITALS: BP 110/83
[2020-02-15] MEDS: QUEtiapine FUMARATE 200 MG TABLET PO SCH (20:24)
[2020-02-16] MEDS: HALOPERIDOL 5 MG TABLET PO PRN (01:15)
[2020-02-16] MEDS: LORazepam 2 MG TABLET PO PRN ×3 (01:15→16:20)
[2020-02-16 05:36] VITALS: BP 118/87
[2020-02-16 08:18] VITALS: BP 102/64
[2020-02-16 16:01] VITALS: BP 110/78
[2020-02-16] MEDS: QUEtiapine FUMARATE 200 MG TABLET PO SCH (20:14)
[2020-02-16 23:40] VITALS: BP 113/67
[2020-02-17 02:15] VITALS: BP 113/67
[2020-02-17 08:24] VITALS: BP 118/65
[2020-02-17] MEDS: LORazepam 2 MG TABLET PO PRN (08:43)
[2020-02-17] MEDS: ARIPiprazole LAUROXIL ER SUSPENSION 882 MG/3.2 ML SYRINGE IM SCH (12:23)
[2020-02-17] MEDS: QUEtiapine FUMARATE 200 MG TABLET PO SCH (20:23)
[2020-02-18 02:24] VITALS: BP 104/68
[2020-02-18] MEDS: LORazepam 2 MG TABLET PO PRN ×2 (08:08→20:17)
[2020-02-18 08:09] VITALS: BP 119/75
[2020-02-18 12:47] LABS: APPEARANCE,URINE CLEAR (CLEAR); BILIRUBIN,URINE NEGATIVE (NEGATIVE); GLUCOSE, URINE (UA) NEGATIVE (NEGATIVE); KETONES,URINE NEGATIVE (NEGATIVE); LEUKOCYTE ESTERASE ,URINE NEGATIVE (NEGATIVE); NITRATE,URINE NEGATIVE (NEGATIVE); OCCULT BLOOD,URINE NEGATIVE (NEGATIVE); PH,URINE 6.5 (5.0-8.0); PROTEIN,URINE NEGATIVE (NEGATIVE); UROBILINOGEN,URINE 0.2 mg/dL (<=1.0)
[2020-02-18 13:07] LABS: BACTERIA,URINE None Seen /HPF (None Seen); RBC,URINE None Seen /HPF (0-2); SQUAMOUS EPITHELIAL CELL,UR Rare /LPF (None Seen); WBC,URINE 0-2 /HPF (0-5)
[2020-02-18 16:20] VITALS: BP 96/68
[2020-02-18] MEDS: QUEtiapine FUMARATE 200 MG TABLET PO SCH (20:17)
[2020-02-19 04:51] VITALS: BP 101/72
[2020-02-19 08:24] VITALS: BP 108/63
[2020-02-19] MEDS: LORazepam 2 MG TABLET PO PRN (08:55)
[2020-02-19 16:56] VITALS: BP 129/71
[2020-02-19] MEDS: QUEtiapine FUMARATE 200 MG TABLET PO SCH (20:29)
[2020-02-20 04:59] VITALS: BP 122/77
[2020-02-20 08:14] VITALS: BP 121/68
[2020-02-20 16:14] VITALS: BP 132/75
[2020-02-20] MEDS: QUEtiapine FUMARATE 200 MG TABLET PO SCH (20:50)
[2020-02-21 00:14] VITALS: BP 113/74
[2020-02-21 08:32] VITALS: BP 118/80
[2020-02-21 16:21] VITALS: BP 111/77
[2020-02-21] MEDS: QUEtiapine FUMARATE 200 MG TABLET PO SCH (20:03)
[2020-02-22 04:15] VITALS: BP 136/73
[2020-02-22 08:25] VITALS: BP 121/65
[2020-02-22] MEDS: LORazepam 2 MG TABLET PO PRN (09:08)
[2020-02-22 16:14] VITALS: BP 116/72
[2020-02-22] MEDS: QUEtiapine FUMARATE 200 MG TABLET PO SCH (20:50)
[2020-02-23 03:04] VITALS: BP 118/77
[2020-02-23 08:25] VITALS: BP 132/75
[2020-02-23] MEDS: LORazepam 2 MG TABLET PO PRN (08:40)
[2020-02-23 16:09] VITALS: BP 124/78
[2020-02-23] MEDS: QUEtiapine FUMARATE 200 MG TABLET PO SCH (21:17)
[2020-02-24 05:06] VITALS: BP 122/72
[2020-02-24] MEDS: LORazepam 2 MG TABLET PO PRN (08:09)
[2020-02-24 08:28] VITALS: BP 122/59
[2020-02-24 16:15] VITALS: BP 100/60
[2020-02-24] MEDS: QUEtiapine FUMARATE 200 MG TABLET PO SCH (20:31)
[2020-02-25 00:05] VITALS: BP 115/78
[2020-02-25 08:18] VITALS: BP 110/80
[2020-02-25] MEDS: LORazepam 2 MG TABLET PO PRN ×2 (08:54→16:09)
[2020-02-25 16:55] VITALS: BP 110/65
[2020-02-25] MEDS: QUEtiapine FUMARATE 200 MG TABLET PO SCH (20:43)
[2020-02-26 00:26] VITALS: BP 112/63
[2020-02-26 08:20] VITALS: BP 125/70
[2020-02-26] MEDS: LORazepam 2 MG TABLET PO PRN (08:44)
[2020-02-26] MEDS: HALOPERIDOL 5 MG TABLET PO PRN ×2 (08:44→16:16)
[2020-02-26 16:13] VITALS: BP 100/69
[2020-02-26] MEDS: QUEtiapine FUMARATE 200 MG TABLET PO SCH (20:39)
[2020-02-27 05:59] VITALS: BP 113/68
[2020-02-27] MEDS: LORazepam 2 MG TABLET PO PRN (08:12)
[2020-02-27 08:15] VITALS: BP 116/72
[2020-02-27] MEDS: HALOPERIDOL 5 MG TABLET PO PRN (16:15)
[2020-02-27 16:38] VITALS: BP 110/70
[2020-02-27] MEDS: QUEtiapine FUMARATE 200 MG TABLET PO SCH (20:32)
[2020-02-28 02:40] VITALS: BP 104/64
[2020-02-28 08:23] VITALS: BP 119/72
[2020-02-28] MEDS: LORazepam 2 MG TABLET PO PRN (09:04)
[2020-02-28 16:15] VITALS: BP 106/66
[2020-02-28] MEDS: QUEtiapine FUMARATE 200 MG TABLET PO SCH (20:35)
[2020-02-29] VITALS: BP 112/67
[2020-02-29] MEDS: LORazepam 2 MG TABLET PO PRN (08:12)
[2020-02-29 08:34] VITALS: BP 115/66
[2020-02-29 16:43] VITALS: BP 107/68
[2020-02-29] MEDS: QUEtiapine FUMARATE 200 MG TABLET PO SCH (21:19)
[2020-03-01 02:36] VITALS: BP 116/80
[2020-03-01 08:18] VITALS: BP_SYST 109; BP_SYST 110; BP_DIAS 43; BP_DIAS 70
[2020-03-01] MEDS: LORazepam 2 MG TABLET PO PRN (08:24)
[2020-03-01 16:17] VITALS: BP 118/70
[2020-03-01] MEDS: QUEtiapine FUMARATE 200 MG TABLET PO SCH (20:42)
[2020-03-02 01:29] VITALS: BP 111/76
[2020-03-02 08:14] VITALS: BP 111/62
[2020-03-02 16:14] VITALS: BP 112/68
[2020-03-02] MEDS: QUEtiapine FUMARATE 200 MG TABLET PO SCH (20:36)
[2020-03-03 00:20] VITALS: BP 121/80
[2020-03-03 08:30] VITALS: BP 105/60
[2020-03-03 08:55] VITALS: BP 118/72
[2020-03-03] MEDS: LORazepam 2 MG TABLET PO PRN (08:58)
[2020-03-03 17:00] VITALS: BP 126/79
[2020-03-03] MEDS: QUEtiapine FUMARATE 200 MG TABLET PO SCH (20:18)
[2020-03-04 00:37] VITALS: BP 104/72
[2020-03-04 08:31] VITALS: BP 117/68
[2020-03-04 16:25] VITALS: BP 105/74
[2020-03-04] MEDS ORDERED: NYSTATIN 15 GM POWDER BOTTLE TP SCH (17:00)
[2020-03-04] MEDS: QUEtiapine FUMARATE 200 MG TABLET PO SCH (20:47)
[2020-03-05 02:27] VITALS: BP 108/68
[2020-03-05 09:41] VITALS: BP 111/74
[2020-03-05] MEDS: QUEtiapine FUMARATE 200 MG TABLET PO SCH (20:37)
[2020-03-05 20:56] VITALS: BP 124/69
[2020-03-06 02:29] VITALS: BP 108/60
[2020-03-06] MEDS: LORazepam 2 MG TABLET PO PRN (08:24)
[2020-03-06] MEDS: HALOPERIDOL 5 MG TABLET PO PRN (08:24)
[2020-03-06 10:31] VITALS: BP 127/76
[2020-03-06 19:02] VITALS: BP 96/52
[2020-03-06] MEDS: QUEtiapine FUMARATE 200 MG TABLET PO SCH (21:00)
[2020-03-06] MEDS: HALOPERIDOL LACTATE 5 MG/ML VIAL IM PRN (21:08)
[2020-03-07 02:34] VITALS: BP 115/67
[2020-03-07 08:30] VITALS: BP 108/73
[2020-03-07 17:19] VITALS: BP 115/68
[2020-03-07] MEDS: QUEtiapine FUMARATE 200 MG TABLET PO SCH (20:30)
[2020-03-08 02:26] VITALS: BP 108/62
[2020-03-08 08:19] VITALS: BP 100/59
[2020-03-08 17:13] VITALS: BP 123/73
[2020-03-08] MEDS: QUEtiapine FUMARATE 200 MG TABLET PO SCH (20:49)
[2020-03-09 04:07] VITALS: BP 112/80
[2020-03-09 08:26] VITALS: BP 112/74
[2020-03-09 16:12] VITALS: BP 113/68
[2020-03-09] MEDS: QUEtiapine FUMARATE 200 MG TABLET PO SCH (20:46)
[2020-03-10 04:44] VITALS: BP 101/72
[2020-03-10 08:25] VITALS: BP 111/58
[2020-03-10 17:28] VITALS: BP 104/57
[2020-03-10] MEDS: QUEtiapine FUMARATE 200 MG TABLET PO SCH (20:44)
[2020-03-11 02:35] VITALS: BP 108/61
[2020-03-11 08:25] VITALS: BP 113/76
[2020-03-11 16:24] VITALS: BP 113/74
[2020-03-11] MEDS: QUEtiapine FUMARATE 200 MG TABLET PO SCH (21:11)
[2020-03-12 00:41] VITALS: BP 118/62
[2020-03-12 08:27] VITALS: BP 109/62
[2020-03-12 17:17] VITALS: BP 129/79
[2020-03-12] MEDS: QUEtiapine FUMARATE 200 MG TABLET PO SCH (21:49)
[2020-03-13 03:46] VITALS: BP 106/72
[2020-03-13 08:32] VITALS: BP 111/65
[2020-03-13 16:25] VITALS: BP 118/77
[2020-03-13] MEDS: QUEtiapine FUMARATE 200 MG TABLET PO SCH (20:17)
[2020-03-14 02:10] VITALS: BP 111/72
[2020-03-14 08:24] VITALS: BP 110/64
[2020-03-14] MEDS: LORazepam 2 MG TABLET PO PRN (09:34)
[2020-03-14 16:29] VITALS: BP 116/71
[2020-03-14] MEDS: QUEtiapine FUMARATE 200 MG TABLET PO SCH (21:23)
[2020-03-15 02:01] VITALS: BP 110/69
[2020-03-15] MEDS: LORazepam 2 MG TABLET PO PRN ×2 (08:03→15:59)
[2020-03-15 17:47] VITALS: BP 122/80
[2020-03-15] MEDS: QUEtiapine FUMARATE 200 MG TABLET PO SCH (20:03)
[2020-03-16 01:39] VITALS: BP 120/88
[2020-03-16 08:22] VITALS: BP 113/71
[2020-03-16] MEDS: LORazepam 2 MG TABLET PO PRN (08:41)
[2020-03-16 16:27] VITALS: BP 112/69
[2020-03-16] MEDS: QUEtiapine FUMARATE 200 MG TABLET PO SCH (20:33)
[2020-03-17 01:17] VITALS: BP 113/76
[2020-03-17 08:48] VITALS: BP 108/60
[2020-03-17] MEDS ORDERED: ARIPiprazole LAUROXIL ER SUSPENSION 882 MG/3.2 ML SYRINGE IM SCH (09:00)
[2020-03-17 17:19] VITALS: BP 106/76
[2020-03-17] MEDS: QUEtiapine FUMARATE 200 MG TABLET PO SCH (20:15)
[2020-03-18 01:34] VITALS: BP 112/73
[2020-03-18 08:25] VITALS: BP 102/59
[2020-03-18] MEDS: ARIPiprazole LAUROXIL ER SUSPENSION 882 MG/3.2 ML SYRINGE IM SCH (10:39)
[2020-03-18 16:14] VITALS: BP 121/78
[2020-03-18] MEDS: QUEtiapine FUMARATE 200 MG TABLET PO SCH (20:10)
[2020-03-19 01:03] VITALS: BP 104/73
[2020-03-19 08:05] VITALS: BP 117/60
[2020-03-19] MEDS ORDERED: ZOLPIDEM TARTRATE 10 MG TABLET PO PRN (08:45)
[2020-03-19] MEDS: LORazepam 2 MG TABLET PO PRN ×2 (09:10→17:57)
[2020-03-19 17:04] VITALS: BP 107/79
[2020-03-19] MEDS: HALOPERIDOL 5 MG TABLET PO PRN (17:57)
[2020-03-19] MEDS: QUEtiapine FUMARATE 200 MG TABLET PO SCH (20:23)
[2020-03-20 03:58] VITALS: BP 129/60
[2020-03-20 08:18] VITALS: BP 108/67
[2020-03-20] MEDS: HALOPERIDOL 5 MG TABLET PO PRN (09:59)
[2020-03-20] MEDS: LORazepam 2 MG TABLET PO PRN (09:59)
[2020-03-20 16:30] VITALS: BP 138/73
[2020-03-20] MEDS: QUEtiapine FUMARATE 200 MG TABLET PO SCH (20:30)
[2020-03-21 04:14] VITALS: BP 127/76
[2020-03-21] MEDS: LORazepam 2 MG TABLET PO PRN (08:15)
[2020-03-21] MEDS: HALOPERIDOL 5 MG TABLET PO PRN (08:15)
[2020-03-21 08:16] VITALS: BP 106/71
[2020-03-21 17:04] VITALS: BP 102/60
[2020-03-21] MEDS: QUEtiapine FUMARATE 200 MG TABLET PO SCH (20:35)
[2020-03-22 01:21] VITALS: BP 101/73
[2020-03-22] MEDS: LORazepam 2 MG TABLET PO PRN (08:16)
[2020-03-22 08:18] VITALS: BP 108/59
[2020-03-22 17:25] VITALS: BP 112/66
[2020-03-22] MEDS: QUEtiapine FUMARATE 200 MG TABLET PO SCH (21:21)
[2020-03-23 04:16] VITALS: BP 108/68
[2020-03-23] MEDS: LORazepam 2 MG TABLET PO PRN (08:29)
[2020-03-23 08:33] VITALS: BP 113/68
[2020-03-23 16:39] VITALS: BP 112/70
[2020-03-23] MEDS: QUEtiapine FUMARATE 200 MG TABLET PO SCH (20:55)
[2020-03-24 01:27] VITALS: BP 107/73
[2020-03-24 08:35] VITALS: BP 102/60
[2020-03-24 16:40] VITALS: BP 106/62
[2020-03-24] MEDS: QUEtiapine FUMARATE 200 MG TABLET PO SCH (20:36)
[2020-03-25 01:24] VITALS: BP 110/70
[2020-03-25 08:12] VITALS: BP 106/62
[2020-03-25] MEDS: LORazepam 2 MG TABLET PO PRN (08:54)
[2020-03-25 16:05] VITALS: BP 108/64
[2020-03-25] MEDS: QUEtiapine FUMARATE 200 MG TABLET PO SCH (20:21)
[2020-03-26] VITALS: BP 105/65
[2020-03-26 08:11] VITALS: BP 112/69
[2020-03-26] MEDS: LORazepam 2 MG TABLET PO PRN ×2 (08:41→15:38)
[2020-03-26 16:33] VITALS: BP 106/68
[2020-03-26] MEDS: QUEtiapine FUMARATE 200 MG TABLET PO SCH (20:48)
[2020-03-27 03:25] VITALS: BP 100/73
[2020-03-27 08:17] VITALS: BP 110/57
[2020-03-27] MEDS: LORazepam 2 MG TABLET PO PRN ×2 (09:06→16:31)
[2020-03-27 16:23] VITALS: BP 126/70
[2020-03-27] MEDS: QUEtiapine FUMARATE 200 MG TABLET PO SCH (20:38)
[2020-03-28 00:48] VITALS: BP 112/73
[2020-03-28 08:19] VITALS: BP 121/70
[2020-03-28] MEDS: LORazepam 2 MG TABLET PO PRN (08:36)
[2020-03-28 16:55] VITALS: BP 106/57
[2020-03-28] MEDS: QUEtiapine FUMARATE 200 MG TABLET PO SCH (21:02)
[2020-03-29 00:46] VITALS: BP 101/63
[2020-03-29 08:12] VITALS: BP 114/69
[2020-03-29] MEDS: LORazepam 2 MG TABLET PO PRN ×2 (09:01→20:17)
[2020-03-29 17:14] VITALS: BP 107/63
[2020-03-29] MEDS: QUEtiapine FUMARATE 200 MG TABLET PO SCH (22:09)
[2020-03-30 01:32] VITALS: BP 101/69
[2020-03-30 08:09] VITALS: BP 109/69
[2020-03-30] MEDS: LORazepam 2 MG TABLET PO PRN (09:30)
[2020-03-30 18:38] VITALS: BP 110/78
[2020-03-30] MEDS: QUEtiapine FUMARATE 200 MG TABLET PO SCH (20:18)
[2020-03-31 00:47] VITALS: BP 139/62
[2020-03-31 08:18] VITALS: BP 111/67
[2020-03-31] MEDS: LORazepam 2 MG TABLET PO PRN (08:28)
[2020-03-31 16:07] VITALS: BP 109/69
[2020-03-31] MEDS: QUEtiapine FUMARATE 200 MG TABLET PO SCH (19:54)
[2020-04-01 05:11] VITALS: BP 106/66
[2020-04-01] MEDS ORDERED: QUET200T PO (08:11)
[2020-04-01 08:23] VITALS: BP 106/62
[2020-04-01 16:21] VITALS: BP 103/61
[2020-04-01] MEDS: QUEtiapine FUMARATE 200 MG TABLET PO SCH (20:19)
[2020-04-02 01:21] VITALS: BP 115/64
[2020-04-02 08:42] VITALS: BP 134/86
[2020-04-02 16:18] VITALS: BP 119/76
[2020-04-02] MEDS: QUEtiapine FUMARATE 200 MG TABLET PO SCH (20:23)
[2020-04-03 04:35] VITALS: BP 118/84
[2020-04-03 08:37] VITALS: BP 114/70
[2020-04-03 16:46] VITALS: BP 120/80
[2020-04-03] MEDS: QUEtiapine FUMARATE 200 MG TABLET PO SCH (20:12)
[2020-04-04 00:10] VITALS: BP 121/68
[2020-04-04 08:15] VITALS: BP 140/92
[2020-04-04 10:00] VITALS: BP 124/80
[2020-04-04 16:09] VITALS: BP 125/69
[2020-04-04] MEDS: QUEtiapine FUMARATE 200 MG TABLET PO SCH (20:14)
[2020-04-05 00:31] VITALS: BP 118/80
[2020-04-05 08:21] VITALS: BP 121/65
[2020-04-05 16:09] VITALS: BP 132/87
[2020-04-05] MEDS: QUEtiapine FUMARATE 200 MG TABLET PO SCH (20:39)
[2020-04-06 00:51] VITALS: BP 122/83
[2020-04-06 08:28] VITALS: BP 150/92
[2020-04-06 16:20] VITALS: BP 114/66
[2020-04-06] MEDS: QUEtiapine FUMARATE 200 MG TABLET PO SCH ×2 (20:25→20:36)
[2020-04-06] MEDS: HALOPERIDOL LACTATE 5 MG/ML VIAL IM PRN (21:08)
[2020-04-07 00:44] VITALS: BP 112/69
[2020-04-07 08:21] VITALS: BP 119/67
[2020-04-07 16:08] VITALS: BP 128/75
[2020-04-07] MEDS: QUEtiapine FUMARATE 200 MG TABLET PO SCH (20:22)
[2020-04-08 03:47] VITALS: BP 128/63
[2020-04-08 08:27] VITALS: BP 130/78
[2020-04-08 16:14] VITALS: BP 123/68
[2020-04-08] MEDS: QUEtiapine FUMARATE 200 MG TABLET PO SCH (20:14)
[2020-04-09 00:29] VITALS: BP 101/72
[2020-04-09 08:40] VITALS: BP 123/74
[2020-04-09] MEDS: HALOPERIDOL 5 MG TABLET PO PRN (10:07)
[2020-04-09 16:20] VITALS: BP 122/72
[2020-04-09] MEDS: QUEtiapine FUMARATE 200 MG TABLET PO SCH (20:23)
[2020-04-10 00:21] VITALS: BP 115/77
[2020-04-10 08:20] VITALS: BP 123/74
[2020-04-10 16:22] VITALS: BP 120/80
[2020-04-10] MEDS: QUEtiapine FUMARATE 200 MG TABLET PO SCH (20:05)
[2020-04-11 00:58] VITALS: BP 110/79
[2020-04-11 08:20] VITALS: BP 128/78
[2020-04-11] MEDS: HALOPERIDOL 5 MG TABLET PO PRN (10:01)
[2020-04-11 16:09] VITALS: BP 114/70
[2020-04-11] MEDS: QUEtiapine FUMARATE 200 MG TABLET PO SCH (20:23)
[2020-04-12 03:01] VITALS: BP 135/87
[2020-04-12 08:13] VITALS: BP 131/83
== END 2020-04-12 12:50 | disposition home or self-care (01) | DRG 885 ==
LOC: B3A 16:58
PROVIDERS: ATTEND Psychiatry & Neurology Child & Adolescent Psychiatry
DX: F20.0 Paranoid schizophrenia (principal); E11.9 Type 2 diabetes mellitus without complications; G47.00 Insomnia, unspecified; K59.00 Constipation, unspecified; F19.10 Other psychoactive substance abuse, uncomplicated; F41.9 Anxiety disorder, unspecified; Z72.0 Tobacco use; Z59.0 Homelessness; Z91.19 Patient's noncompliance with other medical treatment and regimen; Z20.828 Contact with and (suspected) exposure to other viral communicable diseases
CPT/HCPCS: 83036; 84439; 84443; 86592; G0480; J1630